=== PATIENT | male | born 1965 | race Caucasian/White ===

== ENCOUNTER → 2021-03-27 13:05 | Outpatient (BNVA) | payer OTHER, SELFPAY | PROVIDERS: Family Provider Nurse Practitioner Family; Visit Provider Registered Nurse | DX: Z02.1 Encounter for pre-employment examination (principal) | CPT/HCPCS: 80307 ==

== ENCOUNTER 2021-10-31 21:17 | Emergency (ER) | payer OTHER, SELFPAY ==
[2021-10-31 21:31] VITALS: BP 145/85; PULSE 81; RESP 18; TEMP 36.6; O2SAT 97; BMI 32.3
--- NOTE | 2021-10-31 21:41 | W.ED.GENADLT ---
HPI - General Adult General: Chief complaint: Psychiatric Symptoms Stated complaint: Depression, stress Time Seen by Provider: 10/31/21 21:40 History of Present Illness: HPI: [56]yo patient w/ hx of depression presenting to the ED for worsening depression. Patient reports stress at home and at work leading him to be more depressed. Denies any SI currently. On arrival, the patient is AAOx3 and cooperative with my evaluation. No focal complaints of chest pain, shortness of breath, palpitations, N/V, focal GI/ complaints. Currently denies SI/HI. No complaints of hallucinations. Patient tells me earlier that he was involved in a verbal argument with his girlfriend and stated that I wish I was . Patient decided to come to the emergency room to see if he can get further treatment for his worsening depression Onset: acute chronic Duration: ongoing Location: home Severity: severe Associated symptoms: Deny chest pain, dyspnea, nausea, rash, palpitations or vomiting Review of Systems Const: Denies: fever(s) or chills Eyes: Denies: change in vision ENMT: Denies: mouth pain Card: Denies: chest pain or palpitations Resp: Denies: dyspnea or non-productive cough GI: Denies: abdominal pain, nausea, vomiting or diarrhea : Denies: dysuria Musc: Denies: extremity pain Skin/Breast: Denies: rash or new lesions Neuro: Denies: weakness in extremities Psych: Reports: depression; Denies: suicidal ideation Gaetano/Lymph: Denies: easy bruising PFSH ED PFSH: Medical History Depression Social History Smoking and tobacco status: never smoked Alcohol intake: never Substance/Drug Use: never Physical Exam Const: COMMON NORMALS: alert HENMT: COMMON NORMALS: atraumatic HEAD & SCALP: atraumatic MOUTH: moist mucous membranes not abnormal Eye: COMMON NORMALS: EOMs intact bilaterally and conjunctivae normal CONJUNCTIVA: Yes conjunctivae normal Neck/C-Spine: COMMON NORMALS: full ROM and supple Resp: COMMON NORMALS: normal respiratory effort and clear to auscultation bilaterally AUSCULTATION: clear to auscultation bilaterally Cardio: COMMON NORMALS: regular rate RATE: regular rate GI: COMMON NORMALS: Soft to palpation and non-tender PALPATION: Yes Soft to palpation Extremity: COMMON NORMALS: full ROM Neuro: SENSORIUM/ORIENTATION: Yes alert MOTOR EXAM: No Abnormal motor strength present and Other motor observations present (no focal motor deficits) Psych: COMMON NORMALS: speech normal SPEECH: Yes normal speech MOOD & AFFECT: Yes depressed mood Course Vital Signs: Vital signs: Vital Signs Temperature 97.9 F 10/31/21 21:31 Pulse Rate 92 10/31/21 22:47 Respiratory Rate 18 10/31/21 21:31 Blood Pressure 153/114 10/31/21 22:47 Pulse Oximetry 95 10/31/21 22:47 Oxygen Delivery Me thod 10/31/21 21:55 MDM - General Adult Medical Decision Making [56]yo patient w/ hx of depression presenting for depression. HDS, exam within normal limit Thoughts are linear and organized, and the patient has no AH/VH, or SI/HI. Clinically the patient displays no overt toxidrome; they are well appearing, with low suspicion for toxic ingestion given history and exam. Symptoms unlikely 2/2 anemia, hypothyroidism, infection, or ICH. [10:30pm] On reassessment, patient is hemodynamically stable with no acute medical complaints. Denies any suicidal ideation or homicidal ideation. Patient tells me that he feels stressed and wants to get helped for his depression. He request for medication change. Patient is on Zoloft 100 mg daily and risperidone 0.5 mg daily. Case discussed with psychiatric provider Dr. Sandoval at [facility] psych inpatient who recommended close follow-up with [facility]. Dr. Villagomez recommended increasing dose of Zoloft from 100mg daily to 150 mg daily and dose of risperidone from 0.5mg daily to 1 mg daily. I have given patient follow up with our rn field case manager to be seen by our outpatient by [facility] for depression. Patient aware of a call from our rn field case manager to schedule for appointment(s) and verbalizes understanding of the importance of following up. Rx zoloft 150mg daily and risperidone 1mg daily Disposition: Discharge. Patient counseled regarding diagnostic impression, treatment plan. Patient given ED strict return precautions to return for continuation, worsening, or development of new symptoms. Instructed to f/u w/ [facility] regarding symptoms today. Patient verbalized understanding. Discharge Plan Discharge Patient Disposition: Home Clinical Impression: Depression Condition: Stable Prescriptions: New Zoloft 100 mg tablet 150 mg PO Q24H 20 Days Qty: 30 0RF risperidone 1 mg tablet 1 mg PO DAILY 20 Days Qty: 20 0RF Discharge Orders: Discharge ED (Routine); Ordered 10/31/21 Ordered By: Gloria Wright Discharge Diet: Advance as tolerated Discharge Activity: Increase activity as tolerated Patient Instructions: Depression (ED) Activity Restrictions/Additional Instructions: Please come back to the emergency room if you need help, have any hallucinations, or you have any depression or have thoughts about hurting yourself or other people. Our rn field case manager will have you follow-up with behavioral health care in the next few days. You would be expected to have a phone call with our rn field case manager who will put you on the schedule. You can expect a call from us in the next 2-3 days. If you don't hear from us, call us back in the emergency room at [phone]. Coding Level of Care Code ED Activity Aide for Jose Alfredo Fwdeidra Exam Comprehensive
[2021-10-31 21:55] VITALS: BP 152/107; PULSE 83; O2SAT 91
--- NOTE | 2021-10-31 22:01 | PC.NURSE ---
Pt denies self harm thoughts. Pt states they came in for med adjustment.
--- NOTE | 2021-10-31 22:27 | PC.NURSE ---
Pt again denies any thoughts concerning self or other harm. Pt states that they have felt an increase in stress and depression, but denies any self destructive thoughts.
[2021-10-31 22:47] VITALS: BP 153/114; PULSE 92; O2SAT 95
--- NOTE | 2021-11-01 09:58 | DCPLANNER ---
Addendum entered by Stephanie Brunner 11/14/21 12:16: assurance manager received the following message from Dipti at [facility]: Called to explain assessment process, I left him a voicemail with call back number. Original Note: assurance manager had message to schedule a follow up appointment for patient with [facility]. assurance manager sent patients information to Dipti Malone at [facility]. Patients information will be printed and reviewed. Clinic will call patient and inform patient the different services offered at [facility]. Clinic will give patient appointment information.
== END 2021-10-31 22:51 | disposition home or self-care (01) ==
PROVIDERS: Emergency Provider Emergency Medicine
DX: F32.A Depression, unspecified (principal)
CPT/HCPCS: 99283

== ENCOUNTER → 2023-05-22 13:12 | Outpatient (BNVA) | payer OTHER, SELFPAY | PROVIDERS: PCP Registered Nurse; Referring Provider Registered Nurse; Visit Provider Orthopaedic Surgery | DX: M54.2 Cervicalgia (principal); M47.22 Other spondylosis with radiculopathy, cervical region | CPT/HCPCS: 72050 ==

== ENCOUNTER → 2023-05-29 15:01 | Outpatient (BNVA) | payer OTHER, SELFPAY | PROVIDERS: PCP Registered Nurse; Visit Provider Orthopaedic Surgery | DX: M47.22 Other spondylosis with radiculopathy, cervical region (principal); Z79.899 Other long term (current) drug therapy | CPT/HCPCS: 36415; 80053; 81003; 85025 ==

== ENCOUNTER 2023-06-16 13:39 | Inpatient (IN) | payer OTHER, SELFPAY ==
[2023-06-16] VITALS (20 sets, daily range): BP systolic 129–156; BP diastolic 83–97; PULSE 103–119; RESP 9–22; TEMP 36.2–37.5; O2SAT 90–97; BMI 34.0; BMI 34.2
[2023-06-16] MEDS: sodium chloride 0.9% 1,000 ML 30 ML IV (09:45)
--- NOTE | 2023-06-16 09:54 | W.PM.OPSUD ---
Surgery/Procedure H&P Update DATE OF PROCEDURE: June 16, 2023 DATE H&P PERFORMED: 06/05/23 H&P UPDATE INFORMATION: I have reviewed H&P completed within last 30 days, I have examined patient prior to procedure and No changes to prior documentation PREOP DIAGNOSIS: Cervical spondylosis with radiculopathy PLANNED PROCEDURE: Operation Date: 06/16/23 11:05 Proposed Procedures p C4-C5, C5-C6, C6-C7 Anterior Cervical Discectomy & Fusion ACDF w/ Anterior Interbody Fusion w/ Cage w/ Instrumentation w/ Allograft w/ Navigation(Not Applicable) - Sanchez Qureshi DO
--- NOTE | 2023-06-16 10:05 | ANES.PREANE2 ---
Pre-Anesthetic Assessment Height/Weight: Height 1.83 m Weight 113.852 kg Temp Pulse Resp BP Pulse Ox O2 Del Method 97.7 F 103 H 18 147/93 94 Room Air 06/16/23 09:26 06/16/23 09:26 06/16/23 09:26 06/16/23 09:26 06/16/23 09:26 06/16/23 09:26 Preop Diagnosis: Cervical spondylosis with radiculopathy Operation Date: 06/16/23 11:05 Proposed Procedures p C4-C5, C5-C6, C6-C7 Anterior Cervical Discectomy & Fusion ACDF w/ Anterior Interbody Fusion w/ Cage w/ Instrumentation w/ Allograft w/ Navigation(Not Applicable) - Sanchez Qureshi, DO Key anesthetic complications: None Was Beta Carlos taken within 24 hours: N/A Was Clonidine taken within 24 hours: N/A Last intake: Intake Last Liquid Date 06/15/23 Last Liquid Time 19:30 Last Solid Date 06/15/23 Last Solid Time 19:30 Social No alcohol and No tobacco Exam alert, oriented x 3, clear to auscultation bilaterally and regular rate & rhythm Airway Dentition: false CV/HEM Hypertension GI Gastroesophageal Reflux Disease Metabolic Hyperlipidemia Anesthetic Plan ASA status: 2 Anesthesia: General Risk of > 500 ml blood loss (7ml/kg in children): No Medications/Allergies Home Medications Medication Instructions Recorded Confirmed Last Taken Type atorvastatin 20 mg tablet 20 mg PO DAILY 05/22/23 06/13/23 06/15/23 History buspirone 5 mg tablet 5 mg PO TID PRN Anxiety 05/22/23 06/13/23 06/15/23 History celecoxib 200 mg capsule 200 mg PO BID 05/22/23 06/13/23 06/11/23 History gabapentin 100 mg capsule 100 mg PO BID 05/22/23 06/13/23 06/15/23 History lisinopril 20 mg tablet 20 mg PO DAILY 05/22/23 06/13/23 06/15/23 History omeprazole 40 mg capsule,delayed 40 mg PO DAILY 05/22/23 06/13/23 06/15/23 History release risperidone 1 mg tablet 1 mg PO DAILY 05/22/23 06/13/23 06/15/23 History tamsulosin 0.4 mg capsule 0.4 mg PO DAILY 03/10/0706/13/23 06/15/23 History tizanidine 2 mg capsule 2 mg PO DAILY 05/22/23 06/13/23 06/15/23 History Allergies Allergy/AdvReac Type Severity Reaction Status Date / Time Penicillins Allergy ALGY-Rash Verified 06/13/23 09:32 Current Medications Generic Name Dose Route Start Last Admin Trade Name Freq PRN Reason Stop Dose Admin Sodium Chloride 1,000 mls @ 30 mls/hr 06/16/23 09:15 06/16/23 09:45 Sodium Chloride 0.9% IV 06/17/23 09:14 30 mls/hr .Q24H ZURDO Administration PFSH Anesthesia Medical History Depression Social History Smoking and tobacco/nicotine status: never used tobacco/nicotine Alcohol intake: never Substance/Drug Use: never Data Anesthesia Cardiac Studies: No Data to Display
[2023-06-16] MEDS: clindamycin 600 MG/50 ML PREMIX 100 MG IV ×3 (10:50→22:02)
[2023-06-16] MEDS: lidocaine-epi 2% PF 1:200,000 20 mL SDV XX (11:23)
[2023-06-16] MEDS: thrombin 5,000 unit SDV 5000 UNIT XX (11:28)
--- NOTE | 2023-06-16 13:32 | PM.OP ---
Operative Report Date of procedure: June 16, 2023 Pre-op diagnosis: Cervical spondylosis with radiculopathy Post-op diagnosis: same Procedure done: 1. Anterior diskectomy C4/5 2. Anterior diskectomy C5/6 3. Anterior discectomy C6/7 4. Insertion of cage C4/5 5. Insertion of cage C5/6 6. Insertion of Cage C6/7 7. Instrumentation with anterior plate from C4-C7 8. Use of allograft Surgeon: Sanchez Qureshi DO Estimated blood loss (mL): 20 Procedure: 1. Anterior diskectomy C4/5 2. Anterior diskectomy C5/6 3. Anterior discectomy C6/7 4. Insertion of cage C4/5 5. Insertion of cage C5/6 6. Insertion of Cage C6/7 7. Instrumentation with anterior plate from C4-C7 8. Use of allograft The patient was taken to the operating room, where he underwent general endotracheal anesthesia without complications. He was then positioned supine on the operating table, and all areas of impingement were well padded. The arms were carefully padded and tucked at his sides. A roll was placed between the shoulder blades.. An x-ray was done to determine the appropriate level for the skin incision. The entire neck was then sterilely prepped and draped in the usual fashion. Neuromonitoring was attached prior to prepping. A transverse skin incision was made and carried down to the platysma muscle. This was then split in line with its fibers. Blunt dissection was carried down medial to the carotid sheath and lateral to the trachea and esophagus until the anterior cervical spine was visualized. A needle was placed into a disc and an x-ray was done to determine its location. The longus colli muscles were then elevated bilaterally with the electrocautery unit. Self-retaining retractors were placed deep to the longus colli muscle. Attention was brought to the C4/5 level that was confirmed on x-ray. A caspar pin was placed into the C4 vertebrae and the C5 vertebrae. The disk space was then distracted. The microscope was then brought in. A radical anterior discectomies were performed at C4/5. This included complete removal of the anterior annulus, nucleus, and posterior annulus. The posterior longitudinal ligament was removed as were the posterior osteophytes. Foraminotomies were then accomplished bilaterally. This was done using a high speed kristine, kerrison rongeurs and curretes Once all of this was accomplished, the curved currette was used to check for any residual compression. The central canal was wide open as were the foramen. A high-speed bur was used to remove the cartilaginous endplates above and below the interspace. Bleeding cancellous bone was exposed. The disc space were measured and appropriate size cage were placed sterilely onto the field. Allograft graft was packed into the cages. The cage was then placed and there was good juxtaposition against the bleeding decorticated surfaces and good distraction of each interspace. Attention was brought to the next interspace. The [place] pins were removed. Bone wax was used to prevent any bleeding from occurring at the pin sites. Attention was brought to the C5/6 level that was confirmed on x-ray. A caspar pin was placed into the C5 vertebrae and the C6 vertebrae. The disk space was then distracted. The microscope was then brought in. A radical anterior discectomies were performed at C5/6. This included complete removal of the anterior annulus, nucleus, and posterior annulus. The posterior longitudinal ligament was removed as were the posterior osteophytes. Foraminotomies were then accomplished bilaterally. This was done using a high speed kristine, kerrison rongeurs and curretes Once all of this was accomplished, the curved currette was used to check for any residual compression. The central canal was wide open as were the foramen. A high-speed bur was used to remove the cartilaginous endplates above and below the interspace. Bleeding cancellous bone was exposed. The disc space were measured and appropriate size cage were placed sterilely onto the field. Allograft graft was packed into the cages. The cage was then placed and there was good juxtaposition against the bleeding decorticated surfaces and good distraction of each interspace. Attention was brought to the next interspace. The [place] pins were removed. Bone wax was used to prevent any bleeding from occurring at the pin sites. Attention was brought to the C6/7 level that was confirmed on x-ray. A caspar pin was placed into the C6 vertebrae and the C7 vertebrae. The disk space was then distracted. The microscope was then brought in. A radical anterior discectomies were performed at C6/7. This included complete removal of the anterior annulus, nucleus, and posterior annulus. The posterior longitudinal ligament was removed as were the posterior osteophytes. Foraminotomies were then accomplished bilaterally. This was done using a high speed kristine, kerrison rongeurs and curretes Once all of this was accomplished, the curved currette was used to check for any residual compression. The central canal was wide open as were the foramen. A high-speed bur was used to remove the cartilaginous endplates above and below the interspace. Bleeding cancellous bone was exposed. The disc space were measured and appropriate size cage were placed sterilely onto the field. Allograft graft was packed into the cages. The cage was then placed and there was good juxtaposition against the bleeding decorticated surfaces and good distraction of each interspace. The [place] pins were removed. Bone wax was used to prevent any bleeding from occurring at the pin sites. The appropriate size anterior cervical locking plate was chosen and bent into gentle lordosis. Two screws were then placed into each of the vertebral bodies at C4, C5, C6 and C7. There was excellent purchase. A final x-ray was done confirming good position of the hardware and Cages. The locking screws were then applied, also with excellent purchase. Following a final copious irrigation, there was good hemostasis and no dural leaks. The carotid pulse was strong. The wounds were then closed in layers using 2-0 Vicryl suture for the platysma muscle, 2-0 Vicryl suture for the subcutaneous tissue, and 4-0 monocryl suture in a subcuticular skin closure. Glue was placed followed by application of a sterile dressing. The drain was hooked to bulb suction. A soft collar was applied. The patient was then carefully returned to the supine position on his hospital bed where he was reversed and extubated and taken to the recovery room having tolerated the procedure well.
[2023-06-16] MEDS: fentaNYL 50 mcg/mL INJ 2mL IVP (13:56)
--- NOTE | 2023-06-16 14:02 | XR_ITS ---
WS: [id number] Examination: XR cervical spine 3V* [id number] Reason for Exam: ACDF c4-c7, or pic Date: June 16, 2023 Findings: 3 intraoperative images have been obtained with 19.9 seconds of fluoroscopy The dap is 2.19 mGy. Impression: Images demonstrate surgical changes with anterior plate and screw fixation at C4-C7. Interval discect yamil and interbody graft is identified. The inferior cervical alignment is not identified on this stud y. Please see intraoperative note for full explanation of the findings and the procedure.
[2023-06-16] MEDS: lactated ringers 1,000 ML 90 ML IV (14:53)
[2023-06-16] MEDS: gabapentin 100 mg Capsule PO (17:00)
[2023-06-16] MEDS: docusate sodium 100 mg Capsule PO (17:00)
[2023-06-17] MEDS: HYDROcodone-acetaminophen 5-325 mg Tablet PO (01:48)
[2023-06-17] MEDS: lactated ringers 1,000 ML 90 ML IV (01:49)
[2023-06-17 04:08] VITALS: BP 150/93; PULSE 96; RESP 18; TEMP 36.7; O2SAT 94
[2023-06-17 04:09] VITALS: BMI 34.2
[2023-06-17] MEDS: clindamycin 600 MG/50 ML PREMIX 100 MG IV (04:47)
[2023-06-17 08:00] VITALS: BP 147/84; PULSE 94; RESP 18; TEMP 36.3; O2SAT 95
--- NOTE | 2023-06-17 08:08 | PM.DCS ---
Discharge Providers Date of Admission: 06/16/23 13:39 Date of Discharge: June 17, 2023 Attending Provider at Discharge: Sanchez Qureshi DO Primary Care Provider: Paulina Younger Reason for Visit Reason for Visit: M47.22 Physical Exam Narrative: Is doing well complaining of sore throat otherwise feeling good. Urinary Catheter Management: [place]: Cath Placed During This Visit: yes Urinary Catheter Date of Insertion: 06/16/23 Urinary Catheter Time of Insertion: 11:00 Discharge Data Studies Completed and Pending Completed Studies During Hospitalization Category Date Time Status XR cervical spine 3V* [id number] Routine Exams 06/16/23 14:02 Completed Vitals Last Vital Signs Temp 98.1 F 06/17/23 04:08 Pulse 96 06/17/23 04:08 Resp 18 06/17/23 04:08 BP 150/93 06/17/23 04:08 Pulse Ox 94 06/17/23 04:08 O2 Del Method Nasal Cannula 06/17/23 04:08 O2 Flow Rate 2 06/16/23 20:00 Discharge Plan Discharge Patient Disposition: Home Prescriptions: New hydrocodone-acetaminophen 5-325 mg tablet 1 - 2 tab PO .Q4-6H Qty: 40 0RF Continued celecoxib 200 mg capsule 200 mg PO BID omeprazole 40 mg capsule,delayed release(DR/EC) 40 mg PO DAILY tizanidine 2 mg capsule 2 mg PO DAILY atorvastatin 20 mg tablet 20 mg PO DAILY tamsulosin 0.4 mg capsule 0.4 mg PO DAILY gabapentin 100 mg capsule 100 mg PO BID buspirone 5 mg tablet 5 mg PO TID PRN (Reason: Anxiety) risperidone 1 mg tablet 1 mg PO DAILY lisinopril 20 mg tablet 20 mg PO DAILY Discharge Orders: Discharge Order (Routine); Ordered 06/17/23 Ordered By: Sanchez Qureshi Referrals: Sanchez Qureshi DO [Physician] - 07/01/23 8:30 am Discharge Diet: Advance as tolerated Discharge Activity: Limit activity as instructed Patient Instructions: Anterior Cervical Discectomy (GEN), Opioid Safety Activity Restrictions/Additional Instructions: Thank you for choosing [facility] for your care! The following is a list of instructions, from your provider, to follow upon your discharge to ensure you have the optimal recovery from your recent injury or surgery. Anterior Cervical Discectomy and Fusion: What to Expect at Home Your Recovery Follow-up care is a kim part of your treatment and safety. Be sure to make and go to all appointments, and call your doctor if you are having problems. If you do not already have a follow-up appointment made, call office in the next 1-3 days to make follow up appointment for 2 weeks at [phone]. It is also a good idea to know your test results and keep a list of the medicines you take. You can expect your neck to feel stiff or sore after surgery. This should improve in the weeks after surgery. But it may take 4 to 6 months for you to get better completely. You may have trouble sitting or standing in one position for very long and may need pain medicine in the weeks after your surgery. It may take 4 to 6 weeks to get back to your usual activities, but it may depend on what kind of surgery you had. Your throat will feel sore and it may be difficult to swallow for the first 3 days after your surgery. As long as you can get liquids down without difficulty, this should slowly improve, otherwise call our office or seek medical attention if it becomes increasingly difficult to get anything down including liquids. Avoid hot liquids for first 3-5 days. Soothing foods/liquids such as jello, pudding, and luke warm soups are recommended until swallowing improves. Staying elevated will also help, it's advised you keep propped up at while sleeping to help reduce the swelling. You may use an ice pack directly on your incision or around it on the front of your neck, using a cloth to protect your skin; and a heating pad to the back of your neck as needed. Do not use over the counter anti-inflammatory medications (Ibuprofen, Motrin, Aleve, Advil, etc) Taking these meds after having a fusion can delay fusion rates, we recommend you avoid them for the first 3 months after your surgery[address] Dr. Qureshi may advise you to work with a physical therapist to strengthen the muscles around your neck and back - this will be discussed at your follow - up appointments. The pain or numbness you were having in your arms before surgery should get better or go away completely. This care sheet gives you a general idea about how long it will take for you to recover. But each person recovers at a different pace. Follow the steps below to get better as quickly as possible. How can you care for yourself at home? Activity ? Rest when you feel tired. Getting enough sleep will help you recover. ? Try to walk each day. Start by walking a little more than you did the day before. Bit by bit, increase the amount you walk. Walking boosts blood flow and helps prevent pneumonia and constipation. Walking may also decrease your muscle soreness after surgery. ? No lifting anything that is more that 5 pounds. This may include heavy grocery bags and milk containers, a heavy briefcase or backpack, cat litter or dog food bags, a child, or a vacuum sanitation truck cleaner. ? Avoid strenuous activities, such as bicycle riding, jogging, weightlifting, or aerobic exercise, until your doctor says it is okay. ? Do not drive until your follow-up visit after your surgery, or until your doctor says it isokay. ? Avoid taking long car trips for 2 to 4 weeks after surgery. Your neck may become tired and painful from sitting too long in one position. ? You will probably need to take 4 to 6 weeks off from work. It depends on the type of work you do and how you feel. ? You may have sex as soon as you feel able, but avoid positions that put stress on your neck or cause pain. Diet ? You can eat your normal diet. If your stomach is upset, try bland, low-fat foods like plain rice, broiled chicken, toast, and yogurt ? Drink plenty of fluids. If you have kidney, heart, or liver disease and have to limit fluids, talk with your doctor before you increase the amount of fluids you drink. ? You may notice that your bowel movements are not regular right after your surgery. This is common. Try to avoid constipation and straining with bowel movements. You may want to take a fiber supplement every day. If you have not had a bowel movement after a couple of days, ask your doctor about taking a mild laxative. Medicines ? Take pain medicines exactly as directed. 1. If Dr. Qureshi gave you a prescription medicine for pain, take lt as prescribed. 2. Do not take two or more pain medicines at the same time unless the doctor told you to. Many pain medicines have acetaminophen, which is Tylenol. Too much acetaminophen {Tylenol) can be harmful. 3. If you think your pain pill is making you sick to your stomach: 4. Take your pills after meals (unless your doctor has told you not to). 5. Ask your Dr. for a different pain pill. Incisioncare ? Remove your dressing 48hours after your surgery. Ok to shower and get the incision wet. Do not overtly wash your incision. When done, pad dry, leave open to air thereafter. Avoid creams and ointments directly on your incision. ? Your sutures in the incision will dissolve and fall out on their own. ? Keep the area clean and dry. You may cover it with a gauze bandage if it weeps or rubs against clothing; if you choose to do this, change the dressing everyday. Other instructions ? Use a heating pad, hot water bottle, or gentle massage on your back to reduce stiffness. Avoid putting heat on your incision When should you call for help? ? Call 911 anytime you think you may need emergency care. For example, call if: ? You pass out (lose consciousness). ? You have sudden chest pain and shortness of breath, or you cough upblood. ? You cannot swallow. ? You have severe pain in your neck or back. ? Call your Dr. or seek immediate medical care if: ? You have pain that does not get better after you take pain pills. ? You have loose stitches, or your incision comes open. ? You have blood or fluid draining from the incision. ? You have signs of infection, such as: 1. Increased pain, swelling, warmth, or redness. 2. Red streaks leading from the site. 3. Pus draining from the site. 4. Swollen lymph nodes in your neck or armpits. 5. A fever. ? You have severe pain in your arms. ? You have new or increased weakness or numbness in your arms. ? Watch closely for any changes in your health, and be sure to contact your doctor if: ? You do not have a bowel movement after taking a laxative. Discharge Attestations Time Spent in Discharge Care*: less than 30 min Quality Metrics Clinical Quality Measures [ No reported AMI, CVA or VTE this stay] Coding Level of Care Code Acute Code for Chg Fwd
[2023-06-17] MEDS: docusate sodium 100 mg Capsule PO (08:12)
[2023-06-17] MEDS: tizanidine 4 mg Tablet 2 MG PO (08:12)
[2023-06-17] MEDS: risperiDONE 1 mg Tablet PO (08:13)
[2023-06-17] MEDS: tamsulosin 0.4 mg Capsule 0.400000000000000022 MG PO (08:13)
[2023-06-17] MEDS: lisinopril 20 mg Tablet PO (08:13)
[2023-06-17] MEDS: gabapentin 100 mg Capsule PO (08:13)
[2023-06-17] MEDS: pantoprazole DR 40 mg Tablet PO (08:13)
[2023-06-17] MEDS: atorvastatin 40 mg Tablet 20 MG PO (08:13)
[2023-06-17 08:44] VITALS: O2SAT 95
[2023-06-17 09:45] VITALS: BP 147/84; PULSE 94; RESP 18; TEMP 36.3; O2SAT 95
--- NOTE | 2023-06-17 09:53 | PC.CHAP ---
Pastoral Care Encounter/Spiritual Assessment Type of Contact [] Declined lamp tester and inspector visit [] Patient/Family/Request visit [] Outpatient visit [] Follow-up visit [] Physician referral [] Code/Alert [x] Routine visit [] Staff referral [] Actively dying [] Patient sleeping [] Family support [] [] Out of room [] Palliative care [] [] Receiving care in room [] Pre-surgical visit [] Trauma [] Long length of stay [] ICU visit [] Other: Relational/Emotional Strength [x] Patient feels connected with others/family/visitors/staff [] Distress [] Loneliness/isolation [] Abandonment Spirituality of Patient [x] Person of Nga [] Attends Jew of their Nga [x] Believes in Prayer [] Reads Bible or Latter-Day materials [] There are Spiritual issues to be addressed Business Coordinator Interventions [x] Prayer [x] Active listening [] Non-anxious presence [x] Spiritual/emotional support [] Crisis/trauma care [] Spiritual counseling [] Bereavement support [] Provided bereavement packet [] Provided Bible/devotional materials [] Provided toy/stuffed animal, coloring book to patient or family member [] Provided Communion [] Anointing/Vivian [] Salvation [x] Completed spiritual assessment [] Other: Impact on Illness or Injury [] Angry [] Fearful [] Anxious [] Often cries [] Exhaustion [] Unable to work [] Unable to attend rastafarian [] Unable to walk/stand [] Unable to read [] Unable to drive [] Unable to eat/drink [] Unable to sleep [] Unable to be with family [] Patient intubated [] Other: Summary Time spent with patient 5 min
== END 2023-06-17 10:49 | disposition home or self-care (01) | DRG 473 ==
LOC: MEDSURG 14:23
PROVIDERS: Admitting Provider Orthopaedic Surgery; PCP Registered Nurse; Visit Provider Orthopaedic Surgery
PROC: 0RB30ZZ Excision of Cervical Vertebral Disc, Open Approach (ICD-10-PCS; CPT 22551; principal; 2023-06-16 10:45)
DX: M47.22 Other spondylosis with radiculopathy, cervical region (principal); I10 Essential (primary) hypertension; K21.9 Gastro-esophageal reflux disease without esophagitis; E78.5 Hyperlipidemia, unspecified
CPT/HCPCS: 51702; 72040; 76000; 97110; 97161; 97530; 97760; C1713; C1763; C9359; J0131; J0330; J1100; J1170; J2405; J2704; J3010; J3475; J3490; J7030; J7120

== ENCOUNTER → 2023-07-22 08:43 | Outpatient (BNVA) | payer OTHER, SELFPAY | PROVIDERS: PCP Registered Nurse; Visit Provider Orthopaedic Surgery | DX: Z98.1 Arthrodesis status (principal) | CPT/HCPCS: 72040 ==

== ENCOUNTER → 2023-09-02 13:37 | Outpatient (BNVA) | payer OTHER, SELFPAY | PROVIDERS: PCP Registered Nurse; Visit Provider Orthopaedic Surgery | DX: Z98.1 Arthrodesis status (principal) | CPT/HCPCS: 72040 ==